=== PATIENT | male | born 1995 ===

== ENCOUNTER 2018-01-16 09:46 | Emergency (ER) | payer MEDICAID, OTHER ==
[2018-01-16 09:51] VITALS: BMI 20.7
--- NOTE | 2018-01-16 11:46 | RAD ---
Date of service: 01/16/2018 PROCEDURE: Right Foot Radiographs. HISTORY: twisted yesterday while playing basketball COMPARISON: None. FINDINGS: BONES: Normal. No fracture. JOINTS: Normal. SOFT TISSUES: Normal. OTHER FINDINGS: None. IMPRESSION: Normal right foot radiographs.
--- NOTE | 2018-01-16 12:02 | RAD ---
Date of service: 01/16/2018 PROCEDURE: Right Ankle Radiographs. HISTORY: twisted yesterday while playing basketball COMPARISON: None FINDINGS: BONES: Tiny 1 to 2 mm flake like ossifications possible tiny chip osseous avulsed fragments border the inferior medial malleolus and medial talus - the soft tissue swelling is over the lateral malleolus. The chronicity of these tiny flake like ossifications is unknown. JOINTS: . No osteoarthritis. Ankle mortise maintained. Talar dome intact SOFT TISSUES: Lateral malleolar soft tissue swelling OTHER FINDINGS: None. IMPRESSION: Lateral perimalleolar soft tissue swelling. No gross cortical fracture seen. Tiny flake like ossifications - ligamentous ossification and/or a tiny osseous avulsions of unknown chronicity are considerations. These findings border the medial malleolus. Soft tissue swelling is laterally. Correlate clinically
--- NOTE | 2018-01-16 13:11 | ED PDOC ---
Lower Extremity Pain/Injury Time Seen by Provider: 01/16/18 10:07 Chief Complaint (Nursing): Lower Extremity Problem/Injury Chief Complaint (Provider): Right Ankle Pain History Per: Patient History/Exam Limitations: no limitations Onset/Duration Of Symptoms: Days Current Symptoms Are (Timing): Still Present Additional Complaint(s): 22 year old male presents to the ER for an evaluation of right ankle pain. Patient states he was playing basketball last night and when he jumped he felt his ankle pop. Mother gave him a Motrin prior to arrival. Denies fever, chills or shortness of breath. PMD: No Family Provider Past Medical History Reviewed: Historical Data, Nursing Documentation, Vital Signs Vital Signs: Last Vital Signs Temp Pulse 67 01/16/18 09:51 Resp 17 01/16/18 09:51 BP 117/78 01/16/18 09:51 Pulse Ox 98 01/16/18 09:55 - Medical History PMH: Fractures - Surgical History Surgical History: No Surg Hx - Family History Family History: States: No Known Family Hx - Social History Current smoker - smoking cessation education provided: No Alcohol: None Drugs: Denies - Home Medications Home Medications: Ambulatory Orders Medication Instructions Recorded No Known Home Med 02/07/16 - Allergies Allergies/Adverse Reactions: Allergies Allergy/AdvReac Type Severity Reaction Status Date / Time No Known Allergies Allergy Verified 01/16/18 09:54 Review of Systems ROS Statement: Except As Marked, All Systems Reviewed And Found Negative Constitutional: Negative for: Fever, Chills Respiratory: Negative for: Shortness of Breath Musculoskeletal: Positive for: Foot Pain (left) Psych: Negative for: Suicidal ideation (homicidal ideation) Physical Exam - Reviewed Nursing Documentation Reviewed: Yes Vital Signs Reviewed: Yes - Physical Exam Appears: Positive for: Non-toxic, No Acute Distress Head Exam: Positive for: ATRAUMATIC Skin: Positive for: Normal Color, Warm, Dry Extremity: Positive for: Tenderness (lateral malleoulus and medial malleolus), Other (induration lateral aspect) Neurologic/Psych: Positive for: Alert, Oriented (x3). Negative for: Motor/ Sensory Deficits - ECG O2 Sat by Pulse Oximetry: 98 (RA) Pulse Ox Interpretation: Normal Medical Decision Making Medical Decision Making: Time: 1015 Initial Impression: right ankle sprain Initial Plan: --Right Ankle 3 Views [RAD] --Right Foot 3 Views [RAD] --Reevaluation Call placed to party plan selling distributor regarding patient. Time: 1145 PROCEDURE: Right Foot Radiographs. HISTORY: twisted yesterday while playing basketball COMPARISON: None. FINDINGS: BONES: Normal. No fracture. JOINTS: Normal. SOFT TISSUES: Normal. OTHER FINDINGS: None. IMPRESSION: Normal right foot radiographs. Time: 1200 PROCEDURE: Right Ankle Radiographs. HISTORY: twisted yesterday while playing basketball COMPARISON: None FINDINGS: BONES: Tiny 1 to 2 mm flake like ossifications possible tiny chip osseous avulsed fragments border the inferior medial malleolus and medial talus - the soft tissue swelling is over the lateral malleolus. The chronicity of these tiny flake like ossifications is unknown. JOINTS: . No osteoarthritis. Ankle mortise maintained. Talar dome intact SOFT TISSUES: Lateral malleolar soft tissue swelling OTHER FINDINGS: None. IMPRESSION: Lateral perimalleolar soft tissue swelling. No gross cortical fracture seen. Tiny flake like ossifications - ligamentous ossification and/or a tiny osseous avulsions of unknown chronicity are considerations. These findings border the medial malleolus. Soft tissue swelling is laterally. Correlate clinically Scribe Attestation: Documented by Ernesto Lentz, acting as a scribe for Ethel Plasencia MD Provider Scribe Attestation: All medical record entries made by the Scribe were at my direction and personally dictated by me. I have reviewed the chart and agree that the record accurately reflects my personal performance of the history, physical exam, medical decision making, and the department course for this patient. I have also personally directed, reviewed, and agree with the discharge instructions and disposition. 1.00p - seen by podiatry. Placed in splint and given crutches Disposition - Clinical Impression Clinical Impression: Ankle injury - Patient ED Disposition Is Patient to be Admitted: No Doctor Will See Patient In The: Office Counseled Patient/Family Regarding: Diagnosis, Need For Followup - Disposition Referrals: Podiatry Clinic [Outside] [facility] [Outside] [facility] [Outside] Disposition: Routine/Home Disposition Time: 13:00 Condition: STABLE Additional Instructions: Continue ibuprofen at home every 6-8 hours as needed Instructions: Ankle Sprain Forms: [employer] ([place]), [facility] ED School/Work Excuse - POA Present On Arrival: Falls Or Trauma
[2018-01-16 13:52] VITALS: BP 122/78; PULSE 65; RESP 18; TEMP 98.4; O2SAT 96
--- NOTE | 2018-01-16 15:19 | CP.PCM.CON ---
History of Present Illness - History of Present Illness History of Present Illness: Podiatry consult note for Dr. Galicia: 22 yo patient seen and evaluated in the ED for right ankle pain. States that he was playing basketball late last night and came down on his foot and it turned in. States that his foot has gotten more swollen overnight. States that he iced his foot last night but has not iced it today. States that he took some tylenol which made his pain much less. Denies N/V/F/C/SOB/CP and has no other pedal complaints at this time. PMHx: denies PSHx: denies All: NKDA Past Patient History - Past Social History Alcohol: None Drugs: Denies - MUSCULOSKELETAL/RHEUMATOLOGICAL Hx Fractures: Yes - PSYCHIATRIC Hx Substance Use: No - SURGICAL HISTORY Hx Surgeries: No - ANESTHESIA Hx Anesthesia: No Meds Allergies/Adverse Reactions: Allergies Allergy/AdvReac Type Severity Reaction Status Date / Time No Known Allergies Allergy Verified 01/16/18 09:54 Physical Exam - Constitutional Appears: Well, Non-toxic, No Acute Distress - Head Exam Head Exam: ATRAUMATIC, NORMOCEPHALIC - Extremities Exam Additional comments: RLE focused Vasc: DP and PT pulses 2/4 b/l; temp gradient is warm to cool from proximal to distal; cap refill <3 seconds to all digits; pedal hair growth present; mild edema to the lateral ankle anterior to the lateral malleolus Derm: skin temp and turgor within normal limits; there is eccyhmosis present about the lateral ankle anterior to the lateral malleolus; there are no open lesions present; no clinical signs of infection Ortho: pain on palpation of the lateral ankle ligaments; mild pain on tib fib squeeze referred to the lateral ankle ligaments; mild pain at the fifth met base ; no pain along the PT tendon Neuro: gross and protective sensation intact - Neurological Exam Neurological exam: Alert, Oriented x3 - Psychiatric Exam Psychiatric exam: Normal Affect, Normal Mood Results - Vital Signs Recent Vital Signs: Last Vital Signs Temp 98.4 F 01/16/18 13:39 Pulse 65 01/16/18 13:39 Resp 18 01/16/18 13:39 BP 122/78 01/16/18 13:39 Pulse Ox 96 01/16/18 13:39 Assessment & Plan - Assessment and Plan (Free Text) Assessment: 22 yo male with no significant pmhx seen and evaluated in the ED for right lateral ankle sprain Plan: Patient seen and examined Discussed in detail with Dr. Galicia X-rays reviewed - no fracture present, mild widening of the lateral gutter at the right ankle Chart vitals and labs reviewed - afebrile Placed in posterior splint and instructed on nonweightbearing and keeping dressing clean dry and intact Instructed to stay nonweightbearing for 1 week until follow up visit at clinic with Dr. Galicia and trained for use of crutches Instructed to use OTC pain medication and educated on RICE protocol Will follow up in clinic with Dr. Galicia in 1 week - Date & Time Date: 01/16/18 Time: 15:29
== END 2018-01-16 13:39 | disposition home or self-care (01) ==
LOC: H.ER 09:46
DX: S93.401A Sprain of unspecified ligament of right ankle, initial encounter (principal); X50.9XXA Other and unspecified overexertion or strenuous movements or postures, initial encounter; Y93.67 Activity, basketball